=== PATIENT | male | born 1945 | race Caucasian/White ===

== ENCOUNTER → 2018-03-01 | Outpatient (CLI) | payer OTHER, MEDICARE ==
[~2018-03-01] VITALS: Ht 177.8 cm; Wt 123.4 kg
[~2018-03-01] MED LIST: ASPIR 8181 M1 PO; ASPIR-LOW81 MG PO; ASPIRIN325 MG PO; Ascorbic Acid,Ester- PO; BEE WITH C1 EACH PO; CENTRUM CARD1 TABLET PO; COUMADIN2.5 MG PO; DILAUDID2 MG PO; ENALAPRIL MALE2.5 MG PO; INVanz IV; IRON325 M1 PO; LISINOPRIL5 MG PO; LOPRESSOR50 MG PO; METFORMIN HCL500 MG PO; PANTOPRAZOLE SO40 MG PO; PERCOCET 5/31 TABLET PO; PLAVIX75 MG PO; PRAVACHOL40 MG PO; PRILOSEC40 MG PO; PRINIVIL20 MG PO; Percocet 5/325,Endoc PO; TRAZODONE HCL50 MG PO; TYLENOL EXTRA500 MG PO; Theragran PO; Tylenol Extra Streng PO; VISTARIL25 MG PO; VITAMIN C1000 MG PO; Vasotec PO; ZANTAC150 M1 PO; ZANTAC150 MG PO; oxyCODONE PO
[2018-03-01 10:26] LABS: CHLORIDE 103 MEQ/L (99-109); CREATININE 1.1 MG/DL (0.6-1.3); GFR ESTIMATE (CALCULATED) > 59 mL/min/ (58.99-99999); GLUCOSE 171 mg/dL (70-99); POTASSIUM 4.4 MEQ/L (3.7-5.4); SODIUM 136 MEQ/L (136-147); UREA NITROGEN (BUN) 12 mg/dL (9-23)
== END | disposition home or self-care (01) ==
LOC: AMB 08:55
PROVIDERS: Anesthesiology; Surgery
DX: D12.3 Benign neoplasm of transverse colon (principal); D12.0 Benign neoplasm of cecum; K64.1 Second degree hemorrhoids; K64.4 Residual hemorrhoidal skin tags; K57.30 Diverticulosis of large intestine without perforation or abscess without bleeding
CPT/HCPCS: 80048; 82948; 88305; J2405